=== PATIENT | female | born 2000 | race Caucasian/White ===

== ENCOUNTER → 2023-02-11 13:27 | Outpatient (CLI) | payer OTHER, SELFPAY | PROVIDERS: Visit Provider Obstetrics & Gynecology | DX: Z34.80 Encounter for supervision of other normal pregnancy, unspecified trimester (principal) | CPT/HCPCS: 87086 ==

== ENCOUNTER 2023-02-15 12:48 | Emergency (ER) | payer OTHER, SELFPAY ==
[2023-02-15 12:57] VITALS: BP 117/58; PULSE 93; RESP 16; TEMP 36.7; O2SAT 99; BMI 39.1
--- NOTE | 2023-02-15 13:02 | ED.BACK ---
HPI - Back Pain/Injury General Chief Complaint: Back Pain/Injury Stated Complaint: shortness of breath, stabbing pain in spine Time Seen by Provider: 02/15/23 12:52 Source: patient Mode of arrival: Ambulatory Limitations: no limitations History of Present Illness HPI Narrative: 22-year-old female. She is a at approximately 8 weeks EGA. First complicated by preeclampsia. Is here for evaluation of a stabbing pain in her left flank. She states that it happens when she takes a deep breath. States that it occasionally radiates to her left shoulder. She is not having any abdominal pain. No cough. No fevers. She is having some urinary frequency but that has been going on since this started this . No loss of fluid. No vaginal bleeding. No skin changes. Related Data Home Medications Medication Instructions Recorded Confirmed prenat.vits,laurie,[id number] 1 tab PO DAILY 02/05/23 03/11/23 Previous Rx's Medication Instructions Recorded metoclopramide HCl 10 mg tablet 10 mg PO Q6H PRN nausea and 03/11/23 (Reglan) vomiting #20 tabs Allergies Allergy/AdvReac Type Severity Reaction Status Date / Time No Known Drug Allergies Allergy Unverified 03/11/23 13:32 Review of Systems Constitutional Constitutional: Reports system reviewed and no additional complaints, except as documented Respiratory Respiratory: Reports system reviewed and no additional complaints, except as documented Gastrointestinal Gastrointestinal: Reports system reviewed and no additional complaints, except as documented Musculoskeletal Musculoskeletal: Reports system reviewed and no additional complaints, except as documented Integumentary/Breasts Skin/Breast: Reports system reviewed and no additional complaints, except as documented Hematologic/Lymphatic On Anticoagulants: No Patient History Medical History (Updated 03/12/23 @ 18:05 by Isabella Fernandez) Acne Anemia affecting Headache Irregular menstrual cycle Preeclampsia Surgical History (Updated 03/12/23 @ 18:05 by Isabella Fernandez) Anesthesia H/O wrist surgery History of appendectomy Family History (Updated 02/05/23 @ 14:24 by Cheyenne Oliver RN) Mother Breast cancer Ovarian cyst Grandmother Ovarian cyst Grandfather Hyperlipidemia Hypertension Father Family estrangement Social History marital status: number of children: 1 household members: spouse and children lives independently: Yes caregiver/support person: Yes housing: house pets and animals: Yes (2 dogs) education level: high school occupational status: unemployed current occupational exposures/hazards: No special leonid needs: No travel history: recent (domestic cross-country move) seatbelt use: always water heater temp set < 120 deg: Yes working smoke detector in home: Yes fire extinguisher in home: Yes carbon monox detector in home: Yes firearms in home: No do you feel safe at home: Yes Smoking Status: Former smoker Tobacco: How many years used: 1 second hand exposure: No alcohol intake: former (very occasionally when not ) substance use type: does not use during the past year weight has: other (son only ~15 months old, not back to pre-baby wt) well-balanced diet: daily or most days daily servings fruits/ve or more times/day caffeine: No Type(s) of exercise: walking frequency: 3-4 times per week Smoking Status: Former smoker Substance Use Type: does not use Exam Initial Vital Signs Initial Vital Signs: Vital Signs Temperature 98.1 F 02/15/23 12:57 Pulse Rate 93 H 02/15/23 12:57 Respiratory Rate 16 02/15/23 12:57 Blood Pressure 117/58 L 02/15/23 12:57 Pulse Oximetry 99 02/15/23 12:57 Oxygen Delivery Method Room Air 02/15/23 12:57 Const General: cooperative and comfortable HENMT Head: normal to inspection and normocephalic Resp Effort & Inspection: normal respiratory effort Auscultation: clear to auscultation bilaterally Cardio Rate: regular rate Rhythm: regular rhythm GI Inspection: normal to inspection Back/Spine/Pelvis Thoracic/Lumbar Spine: No paraspinal tenderness, No thoracic spinal tenderness and No lumbar spinal tenderness Skin General: no rashes or lesions noted Neuro General: patient alert, patient awake and moves all extremities Extrem General: normal to inspection Course Vital Signs Vital signs: Vital Signs - 8 hr 02/15/23 12:57 Temperature 98.1 F Pulse Rate 93 H Respiratory Rate 16 Blood Pressure 117/58 L Pulse Oximetry 99 Oxygen Delivery Method Room Air MDM - Back Pain/Injury Lab Data Labs: Urine Dip Bedside Urine Glucose Negative Bedside Urine Bilirubin - Negative Bedside Urine Ketone - Negative Urine Specific [place] 1.005 Bedside Urine Occult Blood - Negative Bedside Urine pH 8.5 Bedside Urine Protein - Negative Bedside Urine Urobilinogen - Negative Bedside Urine Nitrite - Negative Bedside Urine Leukocytes - Negative Esterase MDM Narrative Medical decision making narrative: Patient is not hypoxic, not tachypneic, no shortness of breath, have a very low suspicion for pulmonary embolism and based on her status I would not perform any radiologic studies. Her lungs are clear. Low suspicion for pneumonia or pneumothorax. Once again will hold on a chest x-ray. No skin changes. No urinary symptoms. No blood in her urine. Low suspicion for pyelonephritis or renal colic. She is no abdominal tenderness. I do suspect this is muscular and could potentially be an intercostal muscle spasm. I did discuss this with her. Will treat conservatively for now. She was given return precautions and follow-up instructions. She expressed understanding and agreement. A pelvic ultrasound was not ordered during this visit because she was not having any abdominal pain, no complaints. She is not having any vaginal bleeding. There was no indication for pelvic/Ob ultrasound Discharge Plan Departure Patient Disposition: Home Clinical Impression: Acute left flank pain Instructions: DI for Flank Pain Activity Restrictions/Additional Instructions: Your exam here in the emergency department is very reassuring. Your urinalysis does not show any signs of an infection. I have low suspicion that this discomfort today is related to a blood clot or pneumonia and I think that any CT scans or x-rays today is going to be more harmful than beneficial to you and your baby. I recommend that you keep all of your scheduled medical appointments. Return to the emergency department for new or worsening symptoms. Prescriptions: No Action prenat.vits,laurie,[id number] Tablet 1 tab PO DAILY metoclopramide HCl [Reglan] 10 mg tablet 10 mg PO Q6H PRN (Reason: nausea and vomiting) Qty: 20 2RF Referrals: ProviderGideon [Primary Care Provider] - Stand Alone Forms: Patient Portal/API
--- NOTE | 2023-02-15 13:15 | PC.NURSE ---
Pain with inspiration only. Hurts with every breath and is sharp. Posterior LS are clear and equal bilaterally. Pt also reports being 8 weeks .
[2023-02-15 13:29] VITALS: BP 116/55; PULSE 94; O2SAT 97
== END 2023-02-15 13:30 | disposition home or self-care (01) ==
PROVIDERS: Emergency Provider Emergency Medicine
DX: O26.891 Other specified pregnancy related conditions, first trimester (principal); R10.9 Unspecified abdominal pain; Z3A.08 8 weeks gestation of pregnancy
CPT/HCPCS: 81003; 99281; 99282

== ENCOUNTER → 2023-03-11 14:17 | Outpatient (CLI) | payer OTHER, SELFPAY ==
[2023-03-12 09:16] LABS: Add Manual Diff / Slide Review NO; Basophils Absolute Auto 0 /uL (0-100); Basophils Percent Auto 0.2 % (0-2); Eosinophils Absolute Auto 100 /uL (0-450); Hematocrit 37.4 % (36-46); Hemoglobin 12.6 g/dL (12.0-16.0); Lymphocytes Absolute Auto 1500 /uL (1100-4500); Lymphocytes Percent Auto 15.5 % (25-40); Mean Corpuscular HGB Conc 33.8 % (30-36); Mean Corpuscular Hemoglobin 28.7 PG (26-34); Mean Corpuscular Volume 84.9 fL (80-100); Monocytes Absolute Auto 600 /uL (0-900); Monocytes Percent Auto 6.4 % (3-14); Neutrophils Absolute Auto 7500 /uL (1500-7000); Neutrophils Percent Auto 76.9 % (50-75); Platelet Count 233 X10^3/uL (150-400); Red Cell Distribution Width 13.2 % (11.6-14.8); White Blood Cell Count 9.7 X10^3/uL (4.5-11.0)
[2023-03-13 09:17] LABS: Varicella IgG Antibody 232 index (Immune >165)
[2023-03-13 11:58] LABS: RPR Screen Non Reactive (Non Reactive)
[2023-03-23 14:01] LABS: Hepatitis B Surface Antigen NEGATIVE s/c (NEGATIVE); Rubella Antibody IgG 10.9 IU/mL (>15)
[2023-03-23 14:16] LABS: HIV 1 & 2 Ab/Ag 4th Gen Combo NEGATIVE (NEGATIVE); Hep C Virus Ab w/Reflex Quant NEGATIVE s/c (NEGATIVE)
== END ==
PROVIDERS: Referring Provider Obstetrics & Gynecology; Visit Provider Obstetrics & Gynecology
DX: Z34.80 Encounter for supervision of other normal pregnancy, unspecified trimester (principal)
CPT/HCPCS: 36415; 80055; 86787; 86803; 86850; 86900; 86901; 87389

== ENCOUNTER → 2023-03-19 11:31 | Outpatient (CLI) | payer OTHER, SELFPAY | PROVIDERS: Referring Provider Obstetrics & Gynecology; Visit Provider Obstetrics & Gynecology | DX: Z34.80 Encounter for supervision of other normal pregnancy, unspecified trimester (principal) | CPT/HCPCS: 86803; 87389 ==

== ENCOUNTER → 2023-04-08 14:20 | Outpatient (CLI) | payer OTHER, SELFPAY ==
[2023-04-11 20:50] LABS: AFP Value 17.8 ng/mL (.); Gest Age on Col Date 16.6 weeks (.); Insulin Dep Diabetes No (.); OSBR Risk 1IN 10000 (.); Results Report (.); Test Results *Screen Negative* (.)
== END ==
PROVIDERS: Referring Provider Specialist; Visit Provider Specialist
DX: Z34.82 Encounter for supervision of other normal pregnancy, second trimester (principal); Z36.0 Encounter for antenatal screening for chromosomal anomalies; Z3A.16 16 weeks gestation of pregnancy
CPT/HCPCS: 36415; 82105

== ENCOUNTER → 2023-05-13 10:06 | Outpatient (CLI) | payer OTHER, SELFPAY ==
--- NOTE | 2023-05-13 10:07 | DI.US.S_ITS ---
PROCEDURE: US OB >= 14 WEEKS FETUS INDICATIONS: ANATOMY OUTSIDE/PRIOR DATING DATA: Last menstrual period (LMP): 12/13/2022 LMP-based estimated date of delivery (PORFIRIO): 09/19/2023 First dating scan (date and location): 02/11/2023 Estimated date of delivery (PORFIRIO) from first dating scan: 09/28/2023 The calculations are made using the clinical PORFIRIO of 09/19/2023. TECHNIQUE: Real-time scanning was performed of the fetus, with image documentation and biometric measurements. Endovaginal scanning: Not performed COMPARISON: [facility], , OB <= 14 WEEKS FETUS, 03/11/2023, 14:05. FINDINGS: General: A single living intrauterine gestation is present. Presentation: Breech Placenta: Placental position is posterior, without previa. Amniotic fluid index: 11.4 cm, normal range is 5-24 cm. Single deepest vertical pocket is 3.6 cm. heart rate: 150 beats per minute. Maternal cervical canal: 4.8 cm long. Normal lower limit is 2.5 cm. biometrics: Biparietal diameter: 4.7 cm, 20 weeks 0 days Head circumference: 18.1 cm, 20 weeks 4 days Abdominal circumference: 16.0 cm, 21 weeks 1 day Femur length: 3.5 cm, 21 weeks 0 days Clinically estimated gestational age: 21 weeks 4 days Composite gestational age from present scan: 20 weeks 5 days Estimated weight and percentile: 388 g, 17th percentile Anatomic survey: Neuro: Ventricles are non-dilated at less than 10 mm. Cisterna magna is normal at 3-11 mm. Cerebellum is normal in size and morphology. Nuchal skin fold: Normal at less than 6 mm between 14-21 weeks gestational age. Face: Nose and lips, facial profile are normal. Spine: No evidence for spina bifida. Heart: 4-chambered heart is present, with normal ventricular outflow tracts. Diaphragm: Diaphragm is intact. Stomach: Left-sided stomach is present. Kidneys: No hydronephrosis. Normal is less than 5 mm in 2nd trimester, less than 7 mm in 3rd trimester. Cord: 3-vessel cord has orthotopic insertion. Bladder: Normal in size. Extremities: All 4 extremities identified. IMPRESSION: 1. Single live intrauterine with appropriate interval growth. 2. anatomic survey is within normal limits. We strive to produce accurate, complete, and clear reports of imaging services. To assist us in improving patient care, this report was composed using standard report templates and voice recognition software. Therefore, it may contain abnormal punctuation, insertions and/or omissions. Occasional wrong-word or sound-alike substitutions may occur. Though we review the report and make efforts to correct it, we do recommend that the report be read carefully in proper context to recognize any text inaccuracies. Approved by: Dallas Botello M.D. on 05/13/2023 at 14:24
== END ==
PROVIDERS: Referring Provider Specialist; Visit Provider Specialist
DX: Z34.82 Encounter for supervision of other normal pregnancy, second trimester (principal); Z3A.20 20 weeks gestation of pregnancy
CPT/HCPCS: 76811

== ENCOUNTER → 2023-06-16 12:28 | Outpatient (CLI) | payer OTHER, SELFPAY ==
[2023-06-16 14:42] LABS: Hematocrit 29.1 % (36-46); Hemoglobin 10.2 g/dL (12.0-16.0)
[2023-06-16 15:09] LABS: GTT (PREG) 1 Hour PP 50gm Dose 125 mg/dL (76-139)
== END ==
PROVIDERS: Referring Provider Student in an Organized Health Care Education/Training Program; Visit Provider Student in an Organized Health Care Education/Training Program
DX: Z34.82 Encounter for supervision of other normal pregnancy, second trimester (principal); Z3A.26 26 weeks gestation of pregnancy
CPT/HCPCS: 36415; 82950; 85014; 85018

== ENCOUNTER 2023-08-05 10:55 | Outpatient (CLI) | payer OTHER, SELFPAY ==
--- NOTE | 2023-08-05 11:00 | DI.US.S_ITS ---
PROCEDURE: US OB LIMITED INDICATIONS: DECREASED MOVEMENT AND CLINICALLY LGA OUTSIDE/PRIOR DATING DATA: Last menstrual period (LMP): 12/13/2022. LMP-based estimated date of delivery (PORFIRIO): 09/19/2023. First dating scan (date and location): 02/11/2023. Estimated date of delivery (PORFIRIO) from first dating scan: 09/28/2023. TECHNIQUE: Real-time scanning was performed of the fetus, with image documentation. Endovaginal scanning: No COMPARISON: [facility], OB >= 14 WEEKS FETUS, 05/13/2023, 10:18. FINDINGS: A single living intrauterine gestation is present. Presentation: Vertex. Placenta: Placental position is posterior, without previa. Amniotic fluid index: 16.2 cm, normal range is 5-24 cm. Single deepest vertical pocket is 5.2 cm. heart rate: 168 beats per minute. Maternal cervical canal: Not well seen. biometrics: BPD: 85 mm; 34 weeks 3 days Head circumference: 307 mm; 34 weeks 2 days Abdominal circumference: 286 mm; 32 weeks 4 days. Femur length: 71 mm; 36 weeks 2 days Compazine gestational age today: 34 weeks 3 days Clinically estimated gestational age: 33 weeks 4 days Estimated weight: 2328 g, which is at the 56th percentile for gestational age. IMPRESSION: 1. Single living intrauterine gestation. 2. Normal growth. Dictated by: Froylan Zelaya M.D. on 08/05/2023 at 12:28 Approved by: Froylan Zelaya M.D. on 08/05/2023 at 12:30
--- NOTE | 2023-08-06 13:15 | PM.OBTRLD ---
Visit Information Visit Information Date of evaluation: 08/05/23 Primary OB Provider: Hilda Meza Reason for Evaluation: Yes non-stress test PFSH Medical History (Updated 08/06/23 @ 13:15 by Hilda Meza DO) Headache Acne Irregular menstrual cycle Preeclampsia Anemia affecting Surgical History (Updated 03/12/23 @ 18:05 by Isabella Fernandez) Anesthesia H/O wrist surgery History of appendectomy Family History (Updated 02/05/23 @ 14:24 by Cheyenne Oliver RN) Mother Breast cancer Ovarian cyst Grandmother Ovarian cyst Grandfather Hyperlipidemia Hypertension Father Family estrangement Social History marital status: number of children: 1 household members: spouse and children lives independently: Yes caregiver/support person: Yes housing: house pets and animals: Yes (2 dogs) education level: high school occupational status: unemployed current occupational exposures/hazards: No special leonid needs: No travel history: recent (domestic cross-country move) seatbelt use: always water heater temp set < 120 deg: Yes working smoke detector in home: Yes fire extinguisher in home: Yes carbon monox detector in home: Yes firearms in home: No do you feel safe at home: Yes Smoking Status: Former smoker Tobacco: How many years used: 1 second hand exposure: No alcohol intake: former (very occasionally when not ) substance use type: does not use during the past year weight has: other (son only ~15 months old, not back to pre-baby wt) well-balanced diet: daily or most days daily servings fruits/ve or more times/day caffeine: No Type(s) of exercise: walking frequency: 3-4 times per week Evaluation Evaluation Baseline heart rate: 140 Variability: Moderate (11-25) monitor accelerations: Present Monitor Decelerations: Absent Category of Tracing: Reactive Comments: FINDINGS: A single living intrauterine gestation is present. Presentation: Vertex. Placenta: Placental position is posterior, without previa. Amniotic fluid index: 16.2 cm, normal range is 5-24 cm. Single deepest vertical pocket is 5.2 cm. heart rate: 168 beats per minute. Maternal cervical canal: Not well seen. biometrics: BPD: 85 mm; 34 weeks 3 days Head circumference: 307 mm; 34 weeks 2 days Abdominal circumference: 286 mm; 32 weeks 4 days. Femur length: 71 mm; 36 weeks 2 days Compazine gestational age today: 34 weeks 3 days Clinically estimated gestational age: 33 weeks 4 days Estimated weight: 2328 g, which is at the 56th percentile for gestational age. IMPRESSION: 1. Single living intrauterine gestation. 2. Normal growth. Dictated by: Froylan Zelaya M.D. on 08/05/2023 at 12:28 Approved by: Froylan Zelaya M.D. on 08/05/2023 at 12:30 Diagnosis, Plan/Disposition Final Diagnosis (1) Decreased movement: Status: Acute (2) Uterine size date discrepancy, antepartum: Status: Acute Plan/Disposition Plan: Follow-up in clinic as scheduled OB Disposition: home
== END 2023-08-05 12:23 | disposition home or self-care (01) ==
LOC: LABOR 11:04 → OB 08-10 11:53
PROVIDERS: Referring Provider Student in an Organized Health Care Education/Training Program; Visit Provider Student in an Organized Health Care Education/Training Program
DX: O36.8130 Decreased fetal movements, third trimester, not applicable or unspecified (principal); O26.843 Uterine size-date discrepancy, third trimester; Z3A.33 33 weeks gestation of pregnancy
CPT/HCPCS: 59025; 76815; G0378; G0379

== ENCOUNTER → 2023-08-11 10:42 | Outpatient (CLI) | payer OTHER, SELFPAY ==
[2023-08-11 12:31] LABS: Hematocrit 27.2 % (36-46); Hemoglobin 9.3 g/dL (12.0-16.0)
== END ==
PROVIDERS: Referring Provider Student in an Organized Health Care Education/Training Program; Visit Provider Student in an Organized Health Care Education/Training Program
DX: O99.019 Anemia complicating pregnancy, unspecified trimester (principal)
CPT/HCPCS: 36415; 85014; 85018

== ENCOUNTER → 2023-08-19 10:28 | Outpatient (CLI) | payer OTHER, SELFPAY ==
[2023-08-19 11:40] LABS: Hematocrit 28.5 % (36-46); Hemoglobin 9.4 g/dL (12.0-16.0); Mean Corpuscular HGB Conc 33.1 % (30-36); Mean Corpuscular Hemoglobin 27.3 PG (26-34); Mean Corpuscular Volume 82.5 fL (80-100); Platelet Count 212 X10^3/uL (150-400); Red Blood Cell Count 3.45 X10^6/uL (4.0-5.2); Red Cell Distribution Width 14.6 % (11.6-14.8); White Blood Cell Count 12.1 X10^3/uL (4.5-11.0)
== END ==
PROVIDERS: Referring Provider Obstetrics & Gynecology; Visit Provider Obstetrics & Gynecology
DX: O99.019 Anemia complicating pregnancy, unspecified trimester (principal); R82.998 Other abnormal findings in urine
CPT/HCPCS: 36415; 85027; 87086

== ENCOUNTER 2023-08-19 10:32 | Outpatient (CLI) | payer OTHER, SELFPAY | END 2023-08-19 11:30 | disposition home or self-care (01) | LOC: LABOR 10:34 → OB 08-20 12:26 | PROVIDERS: Referring Provider Obstetrics & Gynecology; Visit Provider Obstetrics & Gynecology | DX: O36.8130 Decreased fetal movements, third trimester, not applicable or unspecified (principal); Z3A.35 35 weeks gestation of pregnancy; O99.019 Anemia complicating pregnancy, unspecified trimester; R82.998 Other abnormal findings in urine | CPT/HCPCS: 36415; 59025; 85027; 87086; G0378; G0379 ==

== ENCOUNTER → 2023-08-27 10:35 | Outpatient (CLI) | payer OTHER, SELFPAY ==
[2023-08-28 09:29] LABS: Strep Grp B PCR NEG for Grp B Strep
== END ==
PROVIDERS: Visit Provider Student in an Organized Health Care Education/Training Program
DX: Z34.93 Encounter for supervision of normal pregnancy, unspecified, third trimester (principal); Z3A.36 36 weeks gestation of pregnancy
CPT/HCPCS: 87653

== ENCOUNTER 2023-09-02 08:30 | Outpatient (CLI) | payer OTHER, SELFPAY ==
--- NOTE | 2023-09-02 09:06 | PM.OBTRLD ---
Visit Information Visit Information Date of evaluation: 09/02/23 Reason for Evaluation: Yes non-stress test Vital Signs Vital Signs: reviewed in OBIX, within normal PFSH Medical History (Updated 08/19/23 @ 10:26 by Margarito Kearns MD) Headache Acne Irregular menstrual cycle Preeclampsia Anemia affecting Surgical History (Updated 03/12/23 @ 18:05 by Isabella Fernandez) Anesthesia H/O wrist surgery History of appendectomy Family History (Updated 02/05/23 @ 14:24 by Cheyenne Oliver RN) Mother Breast cancer Ovarian cyst Grandmother Ovarian cyst Grandfather Hyperlipidemia Hypertension Father Family estrangement Social History marital status: number of children: 1 household members: spouse and children lives independently: Yes caregiver/support person: Yes housing: house pets and animals: Yes (2 dogs) education level: high school occupational status: unemployed current occupational exposures/hazards: No special leonid needs: No travel history: recent (domestic cross-country move) seatbelt use: always water heater temp set < 120 deg: Yes working smoke detector in home: Yes fire extinguisher in home: Yes carbon monox detector in home: Yes firearms in home: No do you feel safe at home: Yes Smoking Status: Former smoker Tobacco: How many years used: 1 second hand exposure: No alcohol intake: former (very occasionally when not ) substance use type: does not use during the past year weight has: other (son only ~15 months old, not back to pre-baby wt) well-balanced diet: daily or most days daily servings fruits/ve or more times/day caffeine: No Type(s) of exercise: walking frequency: 3-4 times per week Evaluation Evaluation Baseline heart rate: 145 Variability: Moderate (11-25) monitor accelerations: Present Monitor Decelerations: Absent Contraction Frequency (minutes): 0 Category of Tracing: Reactive Diagnosis, Plan/Disposition Final Diagnosis (1) Obesity affecting : Status: Acute Plan/Disposition Plan: -f/u in clinic for OB appointment today OB Disposition: home
== END 2023-09-02 09:10 | disposition home or self-care (01) ==
LOC: LABOR 08:54 → OB 09-03 16:23
PROVIDERS: Referring Provider Student in an Organized Health Care Education/Training Program; Visit Provider Student in an Organized Health Care Education/Training Program
DX: O99.213 Obesity complicating pregnancy, third trimester (principal); E66.09 Other obesity due to excess calories; Z3A.37 37 weeks gestation of pregnancy; O99.019 Anemia complicating pregnancy, unspecified trimester; D64.9 Anemia, unspecified
CPT/HCPCS: 59025; 96365; 96366; G0378; G0379; Q0138

== ENCOUNTER 2023-09-09 08:25 | Outpatient (CLI) | payer OTHER, SELFPAY ==
--- NOTE | 2023-09-09 14:39 | PM.OBTRLD ---
Visit Information Visit Information Date of evaluation: 09/09/23 Primary OB Provider: Hilda Meza On-call OB Provider: Margarito Kearns Reason for Evaluation: Yes non-stress test Comments/Additional reasons for admission: at 38+4 weeks EGA presenting for scheduled weekly NST due to obesity. Vital Signs Vital Signs: See [facility] Medical History (Updated 08/19/23 @ 10:26 by Margarito Kearns MD) Headache Acne Irregular menstrual cycle Preeclampsia Anemia affecting Surgical History (Updated 03/12/23 @ 18:05 by Isabella Fernandez) Anesthesia H/O wrist surgery History of appendectomy Family History (Updated 02/05/23 @ 14:24 by Cheyenne Oliver RN) Mother Breast cancer Ovarian cyst Grandmother Ovarian cyst Grandfather Hyperlipidemia Hypertension Father Family estrangement Social History marital status: number of children: 1 household members: spouse and children lives independently: Yes caregiver/support person: Yes housing: house pets and animals: Yes (2 dogs) education level: high school occupational status: unemployed current occupational exposures/hazards: No special leonid needs: No travel history: recent (domestic cross-country move) seatbelt use: always water heater temp set < 120 deg: Yes working smoke detector in home: Yes fire extinguisher in home: Yes carbon monox detector in home: Yes firearms in home: No do you feel safe at home: Yes Smoking Status: Former smoker Tobacco: How many years used: 1 second hand exposure: No alcohol intake: former (very occasionally when not ) substance use type: does not use during the past year weight has: other (son only ~15 months old, not back to pre-baby wt) well-balanced diet: daily or most days daily servings fruits/ve or more times/day caffeine: No Type(s) of exercise: walking frequency: 3-4 times per week Evaluation Evaluation Baseline heart rate: 150 Variability: Moderate (11-25) monitor accelerations: Present Monitor Decelerations: Absent Status: Category l Diagnosis, Plan/Disposition Final Diagnosis (1) Obesity affecting : Status: Acute (2) Uterine size date discrepancy, antepartum: Status: Acute (3) History of pre-eclampsia in prior , currently : Status: Acute Plan/Disposition Plan: NST performed and reviewed. Reactive with good movement, accelerations, no decelerations, and moderate variability. OB Disposition: home
== END 2023-09-09 09:05 | disposition home or self-care (01) ==
LOC: OB 09-10 08:03
PROVIDERS: Referring Provider Student in an Organized Health Care Education/Training Program; Visit Provider Student in an Organized Health Care Education/Training Program
DX: O99.213 Obesity complicating pregnancy, third trimester (principal); O26.843 Uterine size-date discrepancy, third trimester; Z3A.38 38 weeks gestation of pregnancy; E66.9 Obesity, unspecified
CPT/HCPCS: 59025; G0378; G0379

== ENCOUNTER 2023-09-11 10:46 | Outpatient (CLI) | payer OTHER, SELFPAY ==
--- NOTE | 2023-09-11 11:21 | P.TNLD_ITS ---
Visit Information Visit Information Date of evaluation: 09/11/23 Primary OB Provider: Hilda Meza On-call OB Provider: Agnes Srivastava Comments/Additional reasons for admission: 22yo at 38w6d here due to decreased movement. She has been feeling her baby move less for the last 24hrs. She reports having quarter-sized spotting on tissue once this morning, as well as mild LUQ pain. She did shovel a lot of snow yesterday. [facility] Medical History (Updated 08/19/23 @ 10:26 by Margarito Kearns MD) Headache Acne Irregular menstrual cycle Preeclampsia Anemia affecting Surgical History (Updated 03/12/23 @ 18:05 by Isabella Fernandez) Anesthesia H/O wrist surgery History of appendectomy Family History (Updated 02/05/23 @ 14:24 by Cheyenne Oliver RN) Mother Breast cancer Ovarian cyst Grandmother Ovarian cyst Grandfather Hyperlipidemia Hypertension Father Family estrangement Social History marital status: number of children: 1 household members: spouse and children lives independently: Yes caregiver/support person: Yes housing: house pets and animals: Yes (2 dogs) education level: high school occupational status: unemployed current occupational exposures/hazards: No special leonid needs: No travel history: recent (domestic cross-country move) seatbelt use: always water heater temp set < 120 deg: Yes working smoke detector in home: Yes fire extinguisher in home: Yes carbon monox detector in home: Yes firearms in home: No do you feel safe at home: Yes Smoking Status: Former smoker Tobacco: How many years used: 1 second hand exposure: No alcohol intake: former (very occasionally when not ) substance use type: does not use during the past year weight has: other (son only ~15 months old, not back to pre-baby wt) well-balanced diet: daily or most days daily servings fruits/ve or more times/day caffeine: No Type(s) of exercise: walking frequency: 3-4 times per week Evaluation Evaluation Baseline heart rate: 145 Variability: Moderate (11-25) monitor accelerations: Present Monitor Decelerations: Absent Category of Tracing: Reactive Diagnosis, Plan/Disposition Final Diagnosis (1) Decreased movement: Status: Acute Plan/Disposition Plan: 22yo at 38w6d here due to decreased movement. Reactive NST. Minimal spotting and pain likely from overexertion yesterday with shoveling. U/A sent today as well - will contact with results. F/U with primary OB as scheduled. OB Disposition: home
[2023-09-11 12:20] LABS: Appearance Urine UA CLEAR; Bilirubin Urine UA NEGATIVE (NEGATIVE); Color Urine UA YELLOW; Glucose Urine UA NEGATIVE (Negative); Ketones Urine UA NEGATIVE (NEGATIVE); Leukocyte Esterase Urine UA TRACE (NEGATIVE); Nitrite Urine UA NEGATIVE (Negative); Occult Blood Urine UA NEGATIVE (Negative); Protein Urine UA NEGATIVE (Negative); Specific Gravity Urine UA <=1.005 (1.000-1.035); Urobilinogen Urine UA 0.2 E.U./dL (0.2)
[2023-09-11 12:21] LABS: pH Urine UA 6.5 (4.5-8.0)
[2023-09-11 12:23] LABS: Bacteria Urine None Seen; Culture Indicated Urine Specimen Cultured; RBC Urine None Seen (0-5/HPF); Squamous Epithelial Cell Urine None Seen (0-5/HPF); WBC Urine 0-1/HPF (0-5/HPF)
== END 2023-09-11 11:35 | disposition home or self-care (01) ==
LOC: LABOR 10:55 → OB 09-14 06:49
PROVIDERS: Referring Provider Family Medicine; Visit Provider Family Medicine
DX: O36.8130 Decreased fetal movements, third trimester, not applicable or unspecified (principal); Z3A.38 38 weeks gestation of pregnancy
CPT/HCPCS: 59025; 81001; 87086; G0378; G0379

== ENCOUNTER 2023-09-16 09:22 | Outpatient (CLI) | payer OTHER, SELFPAY ==
--- NOTE | 2023-09-16 13:20 | PM.OBTRLD ---
Visit Information Visit Information Date of evaluation: 09/16/23 Reason for Evaluation: Yes non-stress test PFSH Medical History (Updated 08/19/23 @ 10:26 by Margarito Kearns MD) Headache Acne Irregular menstrual cycle Preeclampsia Anemia affecting Surgical History (Updated 03/12/23 @ 18:05 by Isabella Fernandez) Anesthesia H/O wrist surgery History of appendectomy Family History (Updated 02/05/23 @ 14:24 by Cheyenne Oliver RN) Mother Breast cancer Ovarian cyst Grandmother Ovarian cyst Grandfather Hyperlipidemia Hypertension Father Family estrangement Social History marital status: number of children: 1 household members: spouse and children lives independently: Yes caregiver/support person: Yes housing: house pets and animals: Yes (2 dogs) education level: high school occupational status: unemployed current occupational exposures/hazards: No special leonid needs: No travel history: recent (domestic cross-country move) seatbelt use: always water heater temp set < 120 deg: Yes working smoke detector in home: Yes fire extinguisher in home: Yes carbon monox detector in home: Yes firearms in home: No do you feel safe at home: Yes Smoking Status: Former smoker Tobacco: How many years used: 1 second hand exposure: No alcohol intake: former (very occasionally when not ) substance use type: does not use during the past year weight has: other (son only ~15 months old, not back to pre-baby wt) well-balanced diet: daily or most days daily servings fruits/ve or more times/day caffeine: No Type(s) of exercise: walking frequency: 3-4 times per week Evaluation Evaluation Baseline heart rate: 150 Variability: Moderate (11-25) monitor accelerations: Present Monitor Decelerations: Absent Contraction Frequency (minutes): 0 Category of Tracing: Reactive Diagnosis, Plan/Disposition Plan/Disposition Plan: Follow-up in clinic as scheduled. OB Disposition: home
== END 2023-09-16 10:10 | disposition home or self-care (01) ==
LOC: LABOR 09:29 → OB 09-18 10:28
PROVIDERS: PCP Nurse Practitioner Family; Referring Provider Student in an Organized Health Care Education/Training Program; Visit Provider Student in an Organized Health Care Education/Training Program
DX: Z34.83 Encounter for supervision of other normal pregnancy, third trimester (principal); Z3A.39 39 weeks gestation of pregnancy
CPT/HCPCS: 59025; G0378; G0379

== ENCOUNTER 2023-09-21 06:31 | Inpatient (IN) | payer OTHER, SELFPAY ==
--- NOTE | 2023-09-21 07:53 | PM.OBHP.1 ---
OB HPI Date/Time Date of admission: 09/21/23 Date Patient Seen: 09/21/23 Time Patient Seen: 07:40 History of Present Condition Chief complaint: induction of labor : 2 Para: 1 Estimated Date of Delivery: 09/19/23 Estimated Gestational Age (weeks): 40+2 Narrative: Nikki Garcia is a 22 year old female Comments: Admitted for induction of labor due to maternal obesity. She reports irregular contractions, and stated that she might have had her water break yesterday. She otherwise reports regular movement and denies vaginal bleeding. Indications Indication for induction OB: other (obesity) History of Present care: good care Dating criteria: LMP confirmed by 1st trimester US Ultrasounds: normal mid trimester US Narrative: 1st anemic, preeclampsia--> on ASA Maternal Hx breast cancer age ~30--> referred for genetic counseling, breast US Chay Francis nonimmune Normal female on cell free DNA; neg MSAFP LSIL/HPV pos s/p normal colpo 1st trimester--> repeat pap Anemia at 28wks--> H/H 10.2/29.1, pt taking PO iron; H/H 9.4/28.5, set up with iron infusions Obesity (pre- BMI 38)--> [x ] weekly NSTs at 37wks; [ x] consider IOL at 39-40wks (scheduled for 09/21/23) Assigned to Dr. Meza Preadmission Labs Blood type: O (+) positive -: Antibody screen: negative, Cystic fibrosis screen: unknown, GBS status: negative, HBsAG: negative, HIV: negative, HSV 1: unknown, HSV 2: unknown and RPR/VDLR: negative -: Chlamydia screen: not detected and Gonorrhea screen: not detected -: Rubella: not immune and Varicella: immune HCT: 29.5 HCAB: negative PAP: Abnormal (due for repeat pap ) Cell-free DNA: low risk XX; negative MSAFP 1 hr GTT: 125 Evaluation Evaluation Baseline heart rate: 145 Variability: Moderate (11-25) monitor accelerations: Present Monitor Decelerations: Absent Contraction Frequency (minutes): 10 Status: Category l Non-invasive Membranes Rupture Test: negative Comments: SVE on 09/16/23 was 3//-3 [facility] Medical History (Updated 08/19/23 @ 10:26 by Margarito Kearns MD) Headache Acne Irregular menstrual cycle Preeclampsia Anemia affecting Surgical History (Updated 03/12/23 @ 18:05 by Isabella Fernandez) Anesthesia H/O wrist surgery History of appendectomy Family History (Updated 02/05/23 @ 14:24 by Cheyenne Oliver RN) Mother Breast cancer Ovarian cyst Grandmother Ovarian cyst Grandfather Hyperlipidemia Hypertension Father Family estrangement Social History marital status: number of children: 1 household members: spouse and children lives independently: Yes caregiver/support person: Yes housing: house pets and animals: Yes (2 dogs) education level: high school occupational status: unemployed current occupational exposures/hazards: No special leonid needs: No travel history: recent (domestic cross-country move) seatbelt use: always water heater temp set < 120 deg: Yes working smoke detector in home: Yes fire extinguisher in home: Yes carbon monox detector in home: Yes firearms in home: No do you feel safe at home: Yes Smoking Status: Former smoker Tobacco: How many years used: 1 second hand exposure: No alcohol intake: former (very occasionally when not ) substance use type: does not use during the past year weight has: other (son only ~15 months old, not back to pre-baby wt) well-balanced diet: daily or most days daily servings fruits/ve or more times/day caffeine: No Type(s) of exercise: walking frequency: 3-4 times per week Meds Home Medications and Allergies Home Medications Medication Instructions Recorded Confirmed Type prenat.vits,laurie,[id number] 1 tab PO DAILY 02/05/23 09/16/23 History metoclopramide HCl 10 mg tablet 10 mg PO Q6H PRN nausea and 03/11/23 09/16/23 Rx (Reglan) vomiting #20 tabs Double Electric Breast Pump #1 ea 05/13/23 09/16/23 Rx Allergies Allergy/AdvReac Type Severity Reaction Status Date / Time No Known Drug Allergies Allergy Unverified 09/16/23 10:21 Review of Systems Review of Systems ROS: Yes All systems reviewed with the patient and are negative except as otherwise documented OB Exam Vital signs Blood Pressure: 108/55 Pulse Rate: 91 Temperature: 97.2 F HENMT Head: normal to inspection Resp Effort & Inspection: normal respiratory effort and able to speak in complete sentences Cardio Rate: regular rate Rhythm: regular rhythm Extremities Lower extremity: Yes normal to inspection GI Other: gravid, nontender, nondistended Objective Labs 09/21/23 07:40 Assessment and Plan Assessment and Plan Assessment and Plan narrative: 22yo at 40+2wks admitted for induction of labor. Her course is complicated by obesity, anemia, history of preeclampsia in a prior , and cervical dysplasia. Will plan to start her induction with 50 mcg sublingual Cytotec. -CBC, T&S on admission -continuous EFM -epidural PRN -GBS neg, ppx not indicated -PPH risk low -VTE risk low, SCDs with epidural -anticipate L&D Counseling: Common procedures and interventions related to the management of were explained to the patient, including assistance at vaginal delivery with episiotomy, vacuum, or forceps, use of medications to stop premature labor or induce labor, and assessment including auscultation (listening to the heart), use of electronic monitoring (external and / or internal), and use of scalp electrode and/or intrauterine pressure catheter.? It was also explained that approximately 20-30% of mothers have a need for delivery during their labor course. It was explained to the patient that , labor and delivery are ordinarily normal physiological events and can be expected to provide a healthy outcome for mother and baby in the majority of cases. However, there are complications that may arise during , labor, and delivery, such as: hemorrhage requiring administration of blood and/or blood products, surgical intervention, possibly even hysterectomy for life-saving purposes; possibility of infection requiring antibiotics, prolonged hospital stay, and rarely surgical intervention; possibility of blood clots;? possibility of retained products of conception requiring surgical intervention;? possibility of serious tears or injury to the vagina, cervix, perineum, or rectum;? possibility of injury to abdominal structures if delivery is required;? and rarely maternal or may occur. Time Spent with Patient Total time spent with greater than 50% in coordination of care (as documented) at patient's floor/unit and/or counseling patient:: 15-24 minutes
[2023-09-21] MEDS: miSOPROStoL 200 MCG TABLET 50 MCG SL (08:18)
[2023-09-21 08:34] LABS: Add Manual Diff / Slide Review NO; Basophils Absolute Auto 0 /uL (0-100); Basophils Percent Auto 0.4 % (0-2); Eosinophils Absolute Auto 100 /uL (0-450); Eosinophils Percent Auto 0.6 % (2-4); Hematocrit 31.2 % (36-46); Hemoglobin 10.7 g/dL (12.0-16.0); Lymphocytes Absolute Auto 1400 /uL (1100-4500); Lymphocytes Percent Auto 15.9 % (25-40); Mean Corpuscular HGB Conc 34.3 % (30-36); Mean Corpuscular Hemoglobin 29.4 PG (26-34); Mean Corpuscular Volume 85.8 fL (80-100); Monocytes Absolute Auto 900 /uL (0-900); Monocytes Percent Auto 9.4 % (3-14); Neutrophils Absolute Auto 6700 /uL (1500-7000); Neutrophils Percent Auto 73.7 % (50-75); Platelet Count 149 X10^3/uL (150-400); Red Blood Cell Count 3.64 X10^6/uL (4.0-5.2); Red Cell Distribution Width 19.4 % (11.6-14.8)
[2023-09-21 08:37] VITALS: BP 108/55
[2023-09-21 08:38] VITALS: BP 108/55; PULSE 91; TEMP 36.2
--- NOTE | 2023-09-21 16:17 | PM.OBPNLAB ---
Date/Time Date Patient Seen: 09/21/23 Time Patient Seen: 16:17 Pain Control Pain control: tolerating well Pelvic Exam Dilation (cm): 5 Effacement (%): 75 station: -2 Amniotic membrane status: Bulging Contractions Contraction pattern: Regular Contraction intensity: Moderate Status status: Category l Heart Rate Baseline: 150 Monitor Accelerations: Present Monitor Decelerations: Absent Monitor Variability: Moderate Assessment and Plan Assessment: induction ongoing Plan: continuous present management Comments: 22yo at 40+2wks admitted for IOL for obesity. She received 50mcg SL cytotec this morning, and has been regularly painfully iliana. AROM performed now, productive of clear fluid. -may start pitocin if her contractions space out -epidural PRN -anticipate
[2023-09-21] MEDS: FENT 2MCG/ML BUPIV 0.125% EPI 200 MCG/100 ML PLAST..BAG 6 MCG EPIDURAL (17:21)
--- NOTE | 2023-09-21 18:00 | P.PCN_ITS ---
Regional Block Pre-procedure Procedure: Continuous Lumbar Epidural for L&D Attending OB provider: Hilda Meza PMH/ROS narrative: 22yo female at 40w2d in labor requesting epidural. BMI 41.6. See Pre- Anesthesia evaluation for further details. ASA Class: III Labs: Hct 31.2 % (36-46) L 09/21/23 07:40 Plt Count 149 X10^3/uL (150-400) L 09/21/23 07:40 Medications: Current Medications Generic Name Dose Route Start Last Admin Trade Name Freq PRN Reason Stop Dose Admin Calcium Carbonate 1,000 mg 09/21/23 06:39 Calcium Carbonate 500 Mg Tab PO Q4HR PRN Dyspepsia Carboprost Tromethamine 250 mcg 09/21/23 06:39 Carboprost 250 Mcg/Ml Ampul IM Q90M PRN Bleeding Diphenhydramine HCl 25 mg 09/21/23 17:58 Diphenhydramine 50 Mg/Ml Vial IV Q10M PRN Pruritis Ephedrine Sulfate 5 mg 09/21/23 17:58 Ephedrine 50 Mg/Ml Vial IV Q5M PRN Blood pressure decrease more than 20% of baseline. Oxytocin/Lactated Ringer's 30 unit in 500 mls @ 2 mls/hr 09/21/23 06:45 Oxytocin Premix IV TITRATE ALANA Protocol 2 MILLIUNIT/MIN Oxytocin/Lactated Ringer's 30 unit in 500 mls @ 200 mls/hr 09/21/23 06:39 Oxytocin Premix IV CONT PRN Bleeding Protocol Tranexamic Acid 1,000 mg/ 100 mls @ 200 mls/hr 09/21/23 06:39 Sodium Chloride IV NOW PRN Bleeding Lactated Ringer's 1,000 mls @ 100 mls/hr 09/21/23 06:45 Lactated Ringers IV CONT ALANA FENT 2MCG/ML BUPIV 0.125% EPI 200 mcg in 100 mls @ 6 mls/hr 09/21/23 18:00 Fentanyl/Bupiv/Ns 2mcg/Ml - 0.125% EPIDURAL CONT ALANA Lidocaine HCl 20 ml 09/21/23 06:39 Lidocaine 1% 20 Ml INJ INTRA-OP PRN Post Delivery Methylergonovine Maleate 0.2 mg 09/21/23 06:39 Methylergonovine 0.2 Mg Tablet PO Q6HR PRN Heavy Bleeding Methylergonovine Maleate 0.2 mg 09/21/23 06:39 Methylergonovine 0.2 Mg/Ml Vial IM NOW PRN Bleeding Misoprostol 400 mcg 09/21/23 06:39 Misoprostol 200 Mcg Tablet SL NOW PRN Bleeding Misoprostol 800 mcg 09/21/23 06:39 Misoprostol 200 Mcg Tablet ME NOW PRN Bleeding Nalbuphine HCl 2.5 mg 09/21/23 17:58 Nalbuphine 20 Mg/Ml Ampul IV Q10M PRN Pruritis Naloxone HCl 0.2 mg 09/21/23 06:39 Naloxone 0.4 Mg/Ml Vial IV Q2MIN PRN Opiate Reversal Ondansetron HCl 4 mg 09/21/23 06:39 Ondansetron 4 Mg/2 Ml Inj IV Q4HR PRN Nausea And Vomiting Oxytocin 10 unit 09/21/23 06:39 Oxytocin 10 Unit/Ml Vial IM NOW PRN Bleeding Allergies: Allergies Allergy/AdvReac Type Severity Reaction Status Date / Time No Known Drug Allergies Allergy Unverified 09/16/23 10:21 Procedure Insertion date: 09/21/23 Insertion time: 18:01 Prep/Local: 1% lidocaine (Chloraprep) Interspace: L3-4 Patient position: sitting Needle: 18 gauge Sharath Loss of resistance with: saline HANNAH at (cm): 7 Catheter placed at SKIN (cm): 16 Catheter in SPACE (cm): 9 Insertion: Yes CSF, No Blood, Yes Paresthesia with insertion, No Paresthesia with injection and No Test dose reaction Initial Medications TEST DOSE time: 17:38 TEST DOSE: 1.5% lidocaine with epinephrine 1:200k (mL): 3 BOLUS DOSE time: 17:54 BOLUS DOSE (mL): 6 BOLUS DOSE med: other (0.125% bupivacaine with fentanyl 2 mcg/ml) Infusion Initial rate (mL/hr): 10 Subsequent interventions: After time-out at 17:25, sterile prep and drape at 17:27. Able to palpate spinous processes. Local to L3-4 and epidural needle placed with HANNAH at 7 cm. CSE with 27g pencil-point needle and 0.25 mg of 0.5% bupivacaine PF given intrathecally at 17:36. Catheter threaded with transient p aresthesia reported by pt. Test dose given at 17:38. After epidural pump primed and connected, pt reported pain with contractions at 4-5/10, down from 8-9/10. Bolused via pump with 6 ml. 18:13 - Pt's labor is progressing quickly and RN reports she is 8 cm, transitioning and very uncomfortable. BP stable and FHR good. Gave epidural bolus of 5 ml lidocaine 2% PF. 18:23 - No relief. Pt is now 9 cm. Another epidural bolus of 5 ml lidocaine 2% PF given. 18:32 - Pt again reports no relief. Now 10 cm and pushing. I intended to pull catheter back and bolus again, but with pt on her back and pushing, am unable to do so. Pt is pushing well, reports lots of pressure. 18:46 - Baby girl delivered via . Post-procedure Anesthesia date START: 09/21/23 Anesthesia time START: 17:27 Anesthesia date END: 09/21/23 Anesthesia time END: 18:46 Post-procedure Anesthesia Assessment: Yes CV function: HR/BP stable, Yes Resp function: RR/sat/airway adequate, Yes Post-op hydration adequate, Yes Pain control adequate, Yes Nausea & vomiting absent, Yes Temperature > 36 C, Yes Mental status appropriate and No Anesthesia complications
--- NOTE | 2023-09-21 19:26 | PM.OBPRVD ---
Labor & Delivery Delivery date: 09/21/23 Cervical ripening method: per misoprostal protocol Induction method: per pitocin protocol Delivery augmentation: rupture of membranes Delivery monitor: external FHT and external uterine Route of delivery: L&D Laceration Description: Superficial (Posterior fourchette did not require suture) Estimated blood loss (mL): 150 Anesthesia Type: Epidural (Attempt at epidural failed to get patient relief) Narrative: Patient was admitted for induction for obesity at 39 and weeks. She received Cytotec orally x1. She had Pitocin begun. She was AROM for clear fluid. Patient when she became uncomfortable requested an epidural however attempts of pain control were unsuccessful by the anesthesiologist. The patient progressed to complete dilation. heart tones category 1 to category 2 throughout labor. Some difficulty in monitoring heart tones in certain positions. The patient delivered spontaneously a viable female infant over an intact perineum. The was placed on maternal abdomen and after the cord stopped pulsating the cord was clamped, cut, and cord bloods obtained. Placenta delivered spontaneously, intact, with 3 vessels. There were no cervical or vaginal tears. There was a posterior fourchette superficial tear that did not require suturing. Estimated blood loss 150 cc. Both and mother doing well. [place] Baby 1: Infant gender: Female Presentation: vertex Position: Right Occiput Anterior Placenta delivery description: Spontaneous Cord Vessel Description: 3 Vessels score (1 min): 8 score (5 min): 9 Plan for aftercare: Routine care
[2023-09-21] MEDS: ACETAMINOPHEN 325 MG TABLET 650 MG PO (21:30)
[2023-09-21] MEDS: IBUPROFEN 600 MG TABLET PO (21:30)
[2023-09-22 05:49] LABS: Add Manual Diff / Slide Review NO; Basophils Absolute Auto 100 /uL (0-100); Basophils Percent Auto 0.5 % (0-2); Eosinophils Absolute Auto 100 /uL (0-450); Eosinophils Percent Auto 0.5 % (2-4); Hematocrit 31.5 % (36-46); Hemoglobin 10.5 g/dL (12.0-16.0); Lymphocytes Absolute Auto 1800 /uL (1100-4500); Lymphocytes Percent Auto 14.3 % (25-40); Mean Corpuscular HGB Conc 33.5 % (30-36); Mean Corpuscular Hemoglobin 28.6 PG (26-34); Mean Corpuscular Volume 85.3 fL (80-100); Monocytes Absolute Auto 1300 /uL (0-900); Monocytes Percent Auto 10.1 % (3-14); Neutrophils Absolute Auto 9400 /uL (1500-7000); Neutrophils Percent Auto 74.6 % (50-75); Platelet Count 152 X10^3/uL (150-400); Red Blood Cell Count 3.69 X10^6/uL (4.0-5.2); Red Cell Distribution Width 19.3 % (11.6-14.8); White Blood Cell Count 12.6 X10^3/uL (4.5-11.0)
--- NOTE | 2023-09-22 06:01 | PM.OBDS.1 ---
Discharge Providers Provider Date of admission: 09/21/23 06:31 Discharge Date: 09/22/23 Primary care physician: ELIZABETH Quinonez Consults: 09/22/23 19:23 Consult to Manufacturing Engineering Intern Routine Comment: Discharge provider: Mary Frederick MD Summary Hospital Course Date Patient Seen: 09/22/23 Time Patient Seen: 06:01 Diagnoses: Vaginal delivery at 39 weeks Hospital Course: Patient arrived on Labor and delivery for induction at 39 weeks for obesity. Patient received Cytotec, Pitocin and was AROM for clear fluid. She had a spontaneous vaginal delivery. She is breast-feeding without difficulty. She denies headaches, scotomata, epigastric pain. She is urinating and ambulating well. Peripartum Data Infant Delivery Method: Natural Vaginal Laceration Description: None Procedures: Labor induction with Cytotec and Pitocin. Spontaneous vaginal delivery complications: none 1: Gender: Female Disposition of : home Discharge Diagnosis (1) Spontaneous vaginal delivery: Status: Acute (2) Obesity affecting : Status: Acute Status at Discharge Cognitive/behavioral status at discharge: oriented Functional status at discharge: independent ambulation Overall status at discharge: patient is progressing back to baseline Time Spent with Patient Time attestation: Total time spent providing and/or coordinating discharge services: Time spent: Less than 30 minutes Objective Labs 09/22/23 05:42 Labs: Laboratory Results - last 24 hr 09/21/23 09/22/23 07:40 05:42 WBC 9.0 12.6 H RBC 3.64 L 3.69 L Hgb 10.7 L 10.5 L Hct 31.2 L 31.5 L MCV 85.8 85.3 MCH 29.4 28.6 MCHC 34.3 33.5 RDW 19.4 H 19.3 H Plt Count 149 L 152 Neut % (Auto) 73.7 74.6 Lymph % (Auto) 15.9 L 14.3 L [place] % (Auto) 9.4 10.1 Eos % (Auto) 0.6 L 0.5 L Baso % (Auto) 0.4 0.5 Neut # (Auto) 6700 9400 H Lymph # (Auto) 1400 1800 [place] # (Auto) 900 1300 H Eos # (Auto) 100 100 Baso # (Auto) 0 100 Blood Type O Positive Antibody Screen Negative Exam Vital Signs (past 8 hours): Blood pressure 112/62, pulse of 87, temperature 98.1? Narrative Exam Narrative: Abdomen is soft, nontender. Uterus is firm, at U, nontender. Perineum is intact. Mild lochia. Extremities with trace edema and nontender. Discharge Plan Discharge Plan Patient Disposition: Home Discharge orders & Medications Prescriptions: Continued prenat.vits,laurie,[id number] Tablet 1 tab PO DAILY Discontinued metoclopramide HCl [Reglan] 10 mg tablet 10 mg PO Q6H PRN (Reason: nausea and vomiting) Qty: 20 2RF No Action (DME) Double Electric Breast Pump See Rx Instructions .Route .MEDSUPPLY Qty: 1 0RF Rx Instructions: Pump with supplies Follow up/Referrals: Gena Kapoor ARNP [Primary Care Provider] - Mary Frederick MD [Physician] - Hilda Meza DO [Physician] - (6 weeks ) Diet/Activity/Treatments Diet: Regular Skin/Wound/Dressing Care Report to your healthcare provider any signs of infection, such as:: chills, fever and increased pain Visit Report/Discharge Packet Stand Alone Forms: Patient Portal/API Discharge Data Primary Care Provider: Gena Kapoor Attending Provider: Hilda Meza Admit Date/Time: 09/21/23 06:31
--- NOTE | 2023-09-22 06:07 | P.DS_ITS ---
Discharge Providers Provider Date of admission: 09/21/23 06:31 Discharge Date: 09/22/23 Primary care physician: ELIZABETH Quinonez Consults: 09/22/23 19:23 Consult to Account Development Representative Routine Comment: Discharge provider: Mary Frederick MD Summary Hospital Course Hospital Course: Patient arrived on Labor and delivery for induction at 39 weeks for obesity. Patient received Cytotec, Pitocin and was AROM for clear fluid. She had a spontaneous vaginal delivery. She is breast-feeding without difficulty. She denies headaches, scotomata, epigastric pain. She is urinating and ambulating well. Discharge Diagnosis (1) Spontaneous vaginal delivery: Status: Acute (2) Obesity affecting : Status: Acute Time Spent with Patient Time attestation: Total time spent providing and/or coordinating discharge services: Objective Labs 09/22/23 05:42 Labs: Laboratory Results - last 24 hr 09/21/23 09/22/23 07:40 05:42 WBC 9.0 12.6 H RBC 3.64 L 3.69 L Hgb 10.7 L 10.5 L Hct 31.2 L 31.5 L MCV 85.8 85.3 MCH 29.4 28.6 MCHC 34.3 33.5 RDW 19.4 H 19.3 H Plt Count 149 L 152 Neut % (Auto) 73.7 74.6 Lymph % (Auto) 15.9 L 14.3 L [place] % (Auto) 9.4 10.1 Eos % (Auto) 0.6 L 0.5 L Baso % (Auto) 0.4 0.5 Neut # (Auto) 6700 9400 H Lymph # (Auto) 1400 1800 [place] # (Auto) 900 1300 H Eos # (Auto) 100 100 Baso # (Auto) 0 100 Blood Type O Positive Antibody Screen Negative Exam Vital Signs (past 8 hours): Blood pressure 112/62, pulse of 87, temperature 98.1? Narrative Exam Narrative: Abdomen is soft, nontender. Uterus is firm, at U, nontender. Perineum is intact. Extremities without edema and nontender. Mild lochia. Discharge Plan Discharge Plan Patient Disposition: Home Discharge orders & Medications Prescriptions: Continued prenat.vits,laurie,[id number] Tablet 1 tab PO DAILY Discontinued metoclopramide HCl [Reglan] 10 mg tablet 10 mg PO Q6H PRN (Reason: nausea and vomiting) Qty: 20 2RF No Action (DME) Double Electric Breast Pump See Rx Instructions .Route .MEDSUPPLY Qty: 1 0RF Rx Instructions: Pump with supplies Follow up/Referrals: Mary Frederick MD [Physician] - Gena Kapoor ARNP [Primary Care Provider] - Hilda Meza DO [Physician] - (6 weeks ) Diet/Activity/Treatments Diet: Regular Skin/Wound/Dressing Care Report to your healthcare provider any signs of infection, such as:: chills, fever and increased pain Visit Report/Discharge Packet Stand Alone Forms: Patient Portal/API Discharge Data Primary Care Provider: Gena Kapoor Attending Provider: Hilda Meza Admit Date/Time: 09/21/23 06:31
[2023-09-22] MEDS: ACETAMINOPHEN 325 MG TABLET 650 MG PO ×2 (09:09→15:55)
[2023-09-22] MEDS: FERROUS SULFATE 325 MG TABLET PO (09:09)
[2023-09-22] MEDS: IBUPROFEN 600 MG TABLET PO ×2 (09:10→15:54)
[2023-09-22] MEDS: PRENATAL VIT,CALC/IRON/FOLIC 1 TABLET 1 TAB PO (09:10)
[2023-09-22] MEDS: MEASLES,MUMPS,RUBELLA VACC/PF 0.5 ML VIAL SUBCUT (15:49)
== END 2023-09-22 16:42 | disposition home or self-care (01) | DRG 807 ==
PROVIDERS: Specialist; Admitting Provider Student in an Organized Health Care Education/Training Program; PCP Nurse Practitioner Family; Referring Provider Student in an Organized Health Care Education/Training Program; Visit Provider Student in an Organized Health Care Education/Training Program
DX: O99.214 Obesity complicating childbirth (principal); Z37.0 Single live birth; Z67.40 Type O blood, Rh positive; O99.02 Anemia complicating childbirth; Z3A.40 40 weeks gestation of pregnancy; O99.892 Other specified diseases and conditions complicating childbirth; N87.9 Dysplasia of cervix uteri, unspecified; Z87.59 Personal history of other complications of pregnancy, childbirth and the puerperium; D64.9 Anemia, unspecified
CPT/HCPCS: 36415; 59050; 59200; 59400; 59409; 84112; 85025; 86850; 86900; 86901; G0379; S0191

== ENCOUNTER → 2023-12-09 13:07 | Outpatient (CLI) | payer OTHER, SELFPAY ==
--- NOTE | 2023-12-09 13:07 | DI.US.S_ITS ---
PROCEDURE: US PELVIC COMPLETE INDICATIONS: POST 09-21-23; BLEEDING X 4 WEEKS TECHNIQUE: Real-time scanning was performed of the pelvic organs, with image documentation. Additional endovaginal scanning was necessary due to incomplete visualization of the adnexal and endometrial structures by transabdominal scanning. COMPARISON: None. FINDINGS: Uterus: Uterus is anteverted and normal in size at 7.3 x 4.2 x 5.6 cm. The myometrium is homogeneous. The endometrium measures 6.2 mm combined thickness. Ovaries: The right ovary measures 1.6 x 2.9 x 1.6 cm, with a calculated ovarian volume of 3.9 cc. The left ovary measures 3.2 x 1.6 x 3.2 cm, with a calculated ovarian volume of 8.4 cc. The ovaries have a normal sonographic appearance. Less than 12 follicles can be seen in each ovary. No adnexal masses are seen. Other: No pathologic free abdominal or pelvic fluid. IMPRESSION: Normal ultrasound of the pelvis Approved by: Bryce Frazire M.D. on 12/09/2023 at 18:03
== END ==
LOC: US 13:07
PROVIDERS: PCP Nurse Practitioner Family; Referring Provider Student in an Organized Health Care Education/Training Program; Visit Provider Student in an Organized Health Care Education/Training Program
DX: N93.9 Abnormal uterine and vaginal bleeding, unspecified (principal)
CPT/HCPCS: 76830; 76856

== ENCOUNTER 2024-05-28 13:58 | Emergency (ER) | payer OTHER, SELFPAY ==
[2024-05-28 14:11] VITALS: BP 121/71; PULSE 96; RESP 16; TEMP 36.6; O2SAT 98; BMI 34.5
--- NOTE | 2024-05-28 14:13 | DI.RAD.S_ITS ---
PROCEDURE: XR ANKLE RT MIN 3V INDICATIONS: twisted, pain TECHNIQUE: 3 views of the ankle were acquired. COMPARISON: None. FINDINGS: Bones: No fractures or dislocations. Ankle mortise is normally aligned. No suspicious bony lesions. Soft tissues: No tibiotalar joint effusion. Achilles tendon appears normal. IMPRESSION: No acute bony abnormality or significant effusion. Approved by: Bryce Frazier M.D. on 05/28/2024 at 14:05
--- NOTE | 2024-05-28 16:22 | ED.LOWEXIN ---
HPI - Extremity Injury (Lower) <Beni Nice PA-C - Last Filed: 05/28/24 16:29> General Chief Complaint: Extremity Injury, Lower Stated Complaint: HIKING AND TWISTED ANKEL RIGHT SIDE Time Seen by Provider: 05/28/24 14:24 Source: patient Mode of arrival: Wheelchair Related Data Home Medications Medication Instructions Recorded Confirmed prenat.vits,laurie,[id number] 1 tab PO DAILY 02/05/23 12/11/23 Previous Rx's Medication Instructions Recorded Double Electric Breast Pump #1 ea 05/13/23 norethindrone (contraceptive) 0.35 0.35 mg PO DAILY #84 tabs 11/06/23 mg tablet tranexamic acid 650 mg tablet 1,300 mg (2 x 650 mg) PO TID 5 12/11/23 days #30 tabs conjugated estrogens 0.625 mg/gram 0.3125 mg vaginal DAILY #30 grams 12/16/23 vaginal cream (Premarin) Allergies Allergy/AdvReac Type Severity Reaction Status Date / Time No Known Drug Allergies Allergy Verified 05/28/24 14:11 Review of Systems <Beni Nice PA-C - Last Filed: 05/28/24 16:29> Review of Systems Narrative: General: See HPI MSK: See HPI All other review of systems have been reviewed and ultimately negative unless otherwise stated in the HPI Patient History <Beni Nice PA-C - Last Filed: 05/28/24 16:29> Medical History (Updated 05/28/24 @ 16:20 by Beni Nice PA-C) Family history of breast cancer Spontaneous vaginal delivery (~09/21/23) Headache Acne Irregular menstrual cycle Preeclampsia Anemia affecting Surgical History (Updated 03/12/23 @ 18:05 by Isabella Fernandez) Anesthesia H/O wrist surgery History of appendectomy Family History (Updated 02/05/23 @ 14:24 by Cheyenne Oliver RN) Mother Breast cancer Ovarian cyst Grandmother Ovarian cyst Grandfather Hyperlipidemia Hypertension Father Family estrangement Social History marital status: number of children: 1 household members: spouse and children lives independently: Yes caregiver/support person: Yes housing: house pets and animals: Yes (2 dogs) education level: high school occupational status: unemployed current occupational exposures/hazards: No special leonid needs: No travel history: recent (domestic cross-country move) seatbelt use: always water heater temp set < 120 deg: Yes working smoke detector in home: Yes fire extinguisher in home: Yes carbon monox detector in home: Yes firearms in home: No do you feel safe at home: Yes Smoking Status: Former smoker Tobacco: How many years used: 1 second hand exposure: No alcohol intake: former (very occasionally when not ) substance use type: does not use during the past year weight has: other (son only ~15 months old, not back to pre-baby wt) well-balanced diet: daily or most days daily servings fruits/ve or more times/day caffeine: No Type(s) of exercise: walking frequency: 3-4 times per week Smoking Status: Former smoker Substance Use Type: does not use Exam <Beni Nice PA-C - Last Filed: 05/28/24 16:29> Initial Vital Signs Initial Vital Signs: Vital Signs Temperature 97.9 F 05/28/24 14:11 Pulse Rate 96 H 05/28/24 14:11 Respiratory Rate 16 05/28/24 14:11 Blood Pressure 121/71 05/28/24 14:11 Pulse Oximetry 98 05/28/24 14:11 Oxygen Delivery Method Room Air 05/28/24 14:11 Const General: cooperative, healthy appearing, comfortable, well developed and well groomed [facility] Head: normal to inspection Ears: hearing grossly normal bilaterally and external ears normal Nose: external nose normal and nares normal Face and sinus: normal facial exam and face symmetric Mouth: oral mucosae normal and lip normal Eyes General: Yes appearance normal, both eyes and all related structures Neck Neck: normal visual inspection, full ROM and no meningeal signs Resp Effort & Inspection: normal respiratory effort Auscultation: clear to auscultation bilaterally Cardio Rate: regular rate Rhythm: regular rhythm Heart Sounds: S1 normal and S2 normal Back/Spine/Pelvis Back: normal to inspection Skin General: no rashes or lesions noted, elasticity normal and turgor normal Lesions: no lesions Rashes: no rashes Trauma: no lacerations or abrasions Wounds: no wounds Neuro Cranial Nerves: CN's II-XI intact bilaterally Motor: muscle tone normal throughout, strength 5/5 throughout and no movement abnormalities noted Extrem Other: Patient has full range of motion of the right lower extremity and the ankle. Neurovascularly distally intact with capillary refill less than 2 seconds. She has subjective tenderness to palpation over the lateral malleolus. No instability noted on exam. Antalgic gait favoring the left lower extremity noted. Psych Appearance: grossly normal and well kempt <Marietta Mcbride DO - Last Filed: 05/29/24 07:48> Initial Vital Signs Initial Vital Signs: Vital Signs Temperature 97.9 F 05/28/24 14:11 Pulse Rate 96 H 05/28/24 14:11 Respiratory Rate 16 05/28/24 14:11 Blood Pressure 121/71 05/28/24 14:11 Pulse Oximetry 98 05/28/24 14:11 Oxygen Delivery Method Room Air 05/28/24 14:11 Course <Beni Nice PA-C - Last Filed: 05/28/24 16:29> Course Course Narrative: Patient was seen and examined. X-rays of the right ankle were ordered at the time of triage and interpreted by the radiologist as a normal study. Patient was notified of the negative findings. She was fitted for a velcro ankle stirrup brace and then prepped for discharge home. The brace was applied by nursing staff under my direct supervision. Neurovascular status remained intact pre and post brace application. Patient understands the treatment plan. No additional questions at the time of discharge and she will follow up as requested. In conclusion, I do not believe the patient sustained any type of neurovascular injury, trimalleolar fracture, bimalleolar fracture or simple fracture with a normal x-ray study. Orders Ordered: ED Orders 05/28/24 14:13 XR ankle RT min 3V Stat Vital Signs Vital signs: Vital Signs - 8 hr 05/28/24 14:11 Temperature 97.9 F Pulse Rate 96 H Respiratory Rate 16 Blood Pressure 121/71 Pulse Oximetry 98 Oxygen Delivery Method Room Air <Marietta Mcbride DO - Last Filed: 05/29/24 07:48> Orders Ordered: ED Orders 05/28/24 14:13 XR ankle RT min 3V Stat Vital Signs Vital signs: Vital Signs - 8 hr 05/28/24 14:11 Temperature 97.9 F Pulse Rate 96 H Respiratory Rate 16 Blood Pressure 121/71 Pulse Oximetry 98 Oxygen Delivery Method Room Air MDM - Extremity Injury (Lower) <Beni Nice PA-C - Last Filed: 05/28/24 16:29> Differential Diagnosis Differential diagnosis: Likely ankle sprain and strain, acute internal derangement of knee and ankle fracture Medical Records Attestation: I reviewed the patient's medical records. MDM Narrative Medical decision making narrative: See above as previously stated Discharge Plan Departure Patient Disposition: Home Clinical Impression: Ankle sprain and strain Instructions: Ankle Sprain Activity Restrictions/Additional Instructions: Utilize the ankle support as needed Stretch the ankle as tolerated and then demonstrated Apply ice to the affected area today 10 minutes at a time 5 times a day and start with heat applications tomorrow Take Tylenol every 8 hours as needed Follow-up with your PCP next week for recheck Return here for any new, emergent concerns or if you should worsen in any way Prescriptions: No Action Premarin 0.625 mg/gram cream 0.3125 mg vaginal DAILY Qty: 30 1RF Rx Instructions: Use nightly for 2 weeks, then decrease to every other night norethindrone (contraceptive) 0.35 mg tablet 0.35 mg PO DAILY Qty: 84 3RF tranexamic acid 650 mg tablet 1,300 mg PO TID 5 Days Qty: 30 2RF prenat.vits,laurie,[id number] Tablet 1 tab PO DAILY (DME) Double Electric Breast Pump See Rx Instructions .Route .MEDSUPPLY Qty: 1 0RF Rx Instructions: Pump with supplies Referrals: Gena Kapoor ARNP [Primary Care Provider] - Stand Alone Forms: Patient Portal/API ED Sign-out <Marietta Mcbride DO - Last Filed: 05/29/24 07:48> Cosign ED Attending Cosignature Attestation: I was available for consultation.
--- NOTE | 2024-05-28 16:38 | PC.NURSE ---
Pt seen an discharged by provider prior to nurse exam.
[2024-05-28 16:39] VITALS: BP 114/72; PULSE 78; RESP 16; O2SAT 99
== END 2024-05-28 16:39 | disposition home or self-care (01) ==
PROVIDERS: Emergency Provider Physician Assistant; PCP Nurse Practitioner Family
DX: S93.401A Sprain of unspecified ligament of right ankle, initial encounter (principal); S96.911A Strain of unspecified muscle and tendon at ankle and foot level, right foot, initial encounter; X50.1XXA Overexertion from prolonged static or awkward postures, initial encounter
CPT/HCPCS: 73610; 99281; 99283

== ENCOUNTER → 2024-08-10 14:30 | Outpatient (CLI) | payer OTHER, SELFPAY ==
--- NOTE | 2024-08-10 14:31 | DI.US.S_ITS ---
PROCEDURE: US EXTREMELY NONVASC UPPER RT INDICATIONS: pain in right wrist h/o cyst TECHNIQUE: Real-time scanning was performed of the right wrist , with image documentation. COMPARISON: None. FINDINGS: At the area of concern, there is a 0.6 x 0.2 x 0.6 cm fluid collection overlying the scaphoid. IMPRESSION: Possible 0.6 cm ganglion cyst at the area of concern. Dictated by: Tereso Bernard M.D. on 08/10/2024 at 20:24 Approved by: Tereso Bernard M.D. on 08/10/2024 at 20:25
== END ==
LOC: US 14:30
PROVIDERS: PCP Nurse Practitioner Family; Referring Provider Nurse Practitioner Family; Visit Provider Nurse Practitioner Family
DX: M25.531 Pain in right wrist (principal)
CPT/HCPCS: 76882

== ENCOUNTER → 2024-09-30 18:35 | Outpatient (CLI) | payer OTHER, SELFPAY ==
--- NOTE | 2024-09-30 | DI.MRI.S_ITS ---
PROCEDURE: MR WRIST RT WO CON INDICATIONS: ganglion right wrist TECHNIQUE: Noncontrast coronal proton density fast spin echo and T2 fast spin echo with fat saturation; coronal 3-D gradient echo, axial T1 spin echo and T2 fast spin echo with fat saturation, sagittal T1 spin echo through the wrist. COMPARISON: [facility], US, US EXTREMELY NONVASC UPPER RT, 08/10/2024, 14:49. FINDINGS: Image quality: Excellent. Bones: The bone marrow signal is normal. There is no evidence of fracture or carpal bone osteonecrosis. There is a type 1 lunate. Joints: There is no significant osteoarthritis. There is no significant fluid within the distal radioulnar joint, radiocarpal joint, or midcarpal space. Intrinsic Ligaments: The scapholunate and lunotriquetral intervals are normal. The intrinsic scapholunate and lunotriquetral ligaments are normal. Extrinsic Ligaments: The extrinsic ligaments are normal. Triangular Fibrocartilage Complex: The triangular fibrocartilage disc proper, distal dorsal and volar radioulnar ligaments, ulnar collateral ligament/meniscal homologue, ulnotriquetral, and ulnolunate ligaments are normal. Tendons: The flexor and extensor tendons are normal. Nerves: The median and ulnar nerves appear normal in size and signal. Other: At the volar-radial aspect of the distal carpal row, there is a multi septated 1.0 x 0.9 by 0.6 T1 hypointense (skeletal muscle), T2 hyperintense lesion with mild internal complexity (3/11; 8/14) that lies superficial to the flexor retinaculum. The neck of this collection is not clearly identified. Please note that evaluation is limited , in the absence of intravenous contrast. IMPRESSION: 1. Possible 1 cm volar-radial multi septated ganglion cyst. Given the lack of intravenous contrast, please correlate this finding with the available history and potentially ultrasound-guided aspiration for confirmation. 2. No other acute MR abnormality of the wrist. Dictated by: Tereso Bernard M.D. on 10/03/2024 at 10:53 Approved by: Tereso Bernard M.D. on 10/03/2024 at 11:00
== END ==
PROVIDERS: PCP Nurse Practitioner Family
DX: M67.431 Ganglion, right wrist (principal)
CPT/HCPCS: 73221

== ENCOUNTER 2025-05-26 08:08 | Day surgery (SDC) | payer OTHER, SELFPAY ==
[2025-05-24 14:49] VITALS: BMI 41.3
--- NOTE | 2025-05-26 | PATH_ITS ---
[facility] Accession Number: [id number] No. of containers..02 Tissue . 01 Material submitted: . PART A: product of conception - PRODUCTS OF CONCEPTION 1 PART B: product of conception - PRODUCTS OF CONCEPTION 2 . 01 Diagnosis: A. PRODUCTS OF CONCEPTION 1: Products of conception identified. Outside consultation pending to evaluate for molar gestation; results will be reported as an addendum. . B. PRODUCTS OF CONCEPTION 2: Products of conception identified. [facility] 06/01/2025 [facility] . 01 Electronically signed: . Sabrina Bhatti MD, Pathologist NPI- [id number] . 01 Gross description: . A. Received in formalin, labeled with two patient identifiers and products of conception #1, and consists of an 8.5 x 8.0 x 2.5 cm aggregate of papilliferous tissue and clotted blood admixed with fibromembranous tissue. No tissue is identified. Nut Former sections of the villous tissue are submitted in cassettes A1 and A2. B. Received in formalin, labeled with two patient identifiers and products of conception #2, and consists of a 15.0 x 7.5 x 3.0 cm aggregate of predominately clotted blood admixed with fibromembranous tissue and possible villous tissue. No tissue is identified. Nut Former sections of the possible villous tissue and fibromembranous tissue are submitted in cassette B1. ([id number]) /Kami 05/27/2025 1433 Local . 01 Pathologist provided ICD-10: O02.1 . 01 CPT . 700728, 713813 Specimen Comment: A courtesy copy of this report has been sent to [facility] Pathology Performed at: [address] [address], [place], [place] [id number] MD Jeovanny Toribio MD Phone: [phone]
[2025-05-26 08:25] VITALS: BP 130/57; PULSE 96; RESP 16; TEMP 36.9; O2SAT 97; BMI 37.2
[2025-05-26] MEDS: DOXYCYCLINE HYCLATE 100 MG TABLET 200 MG PO (08:37)
[2025-05-26] MEDS: LACTATED RINGERS 1,000 ML 42 ML IV (08:37)
[2025-05-26] MEDS: SCOPOLAMINE 1 PATCH TOP (08:47)
--- NOTE | 2025-05-26 09:42 | PM.PREOP ---
Pre-operative Note COVID-19 COVID-19 status: Not tested Interval Note History & Physical reviewed/Exam performed by Physician: Yes Changes to H&P: No ASA Class (for procedural sedation): II
--- NOTE | 2025-05-26 10:21 | SUR.OPER ---
Lithotomy on padded OR bed, head on pillow, arms secured on padded arm boards at <90 degrees abduction. Legs secured in padded yellow fins stirrups.
--- NOTE | 2025-05-26 10:52 | PM.OP.1 ---
Operative Date/Time/Diagnoses Date of procedure: 05/26/25 Time of procedure: 10:15 Pre-op diagnosis: Missed at 9wks Post-op diagnosis: same Procedure & Clinicians Procedure: Suction Dilation and curettage Same procedure(s) as scheduled: Yes Indications: Patient is a 24yo @ 12wk2 presented to clinic for routine OB visit and diagnosed with missed measuring 9w2d. patient denied any cramping or bleeding prior to visit. counseled regarding management optinos and desired to proceed with surgical management. Surgeon: Nelly Sandoval Assisted?: No Anesthesia Type: General Operative Notes Findings: large products of conception Specimen(s): other (products of conception) Applied: none Estimated Blood Loss (mL): 500 Blood products transfused: none Procedure in detail: preop drainage UO- 150ml Procedure: ?The patient was taken to the operating room where general anesthesia was administered without difficulty. The patient was prepped and draped in usual sterile fashion in lithotomy position with yellow fin stirrups. SCDs were placed. The bladder was full so a red rubber catheter was placed to drain the bladder. A weighted speculum was placed. The anterior lip of the cervix was grasped with a single tooth tenaculum. The cervix was gradually dilated with hegar dilators. A 10-mm suction curettage was advanced into the uterine cavity without difficulty and was used to suction contents of the uterus. Following removal of the products of conception, a sharp curette was advanced into the uterine cavity and was used to scrape the four hector of the uterus. There was an area that seemed to have some retained tissue so an US was brought into the room and a 11-mm suction curette placed under US guidance to complete the suction D&C. The sharp curette was reintroduced and a gritty feeling was noted in all quadrants. At this time, the suction curette was advanced one additional time to suction any remaining products. All instruments were removed. Hemostasis was visualized. The patient was stable at the completion of the procedure. Sponge, lap, and instrument counts were correct. Patient given IV TXA during procedure due to more bleeding then usual although quickly stabilized when all tissue removed. Complications: none Post-operative Condition: stable Disposition: same day surgery Plan for aftercare: pelvic rest x 2 weeks bleeding and ER precautions given follow up in 2wks for post op visit patient agrees to hospital disposal of products of conception
[2025-05-26 10:54] VITALS: BP 138/69; PULSE 124; RESP 16; TEMP 36.2; O2SAT 100
[2025-05-26] MEDS: ACETAMINOPHEN IV 1,000 MG/100 ML VIAL 400 MG IV (10:56)
[2025-05-26 11:00] VITALS: BP 127/71; PULSE 109; RESP 14; O2SAT 98
[2025-05-26 11:05] VITALS: BP 123/71; PULSE 105; RESP 8; TEMP 36.2; O2SAT 99
[2025-05-26 11:15] VITALS: BP 132/78; PULSE 101; RESP 12; TEMP 36.2; O2SAT 98
== END 2025-05-26 12:00 | disposition home or self-care (01) ==
PROVIDERS: PCP Nurse Practitioner Family; Referring Provider Obstetrics & Gynecology; Visit Provider Obstetrics & Gynecology
PROC: (CPT 58120; principal; 2025-05-26 09:45)
DX: O02.1 Missed abortion (principal); Z3A.09 9 weeks gestation of pregnancy
CPT/HCPCS: 59820; J0131; J1100; J2250; J2405; J2704; J3010; J7120